=== PATIENT | female | born 1995 | race Caucasian/White ===

== ENCOUNTER 2017-10-17 21:10 | Emergency (ER) | payer SELFPAY ==
[~2017-10-17] VITALS: Ht 170.2 cm; Wt 56.7 kg
[2017-10-17] MEDS ORDERED: ALBUTEROL2.5 MG/3 M INH (21:21)
[2017-10-17 21:27] VITALS: BP 122/81
[2017-10-17] MEDS ORDERED: Albuterol ud Inhalation HHN ONE (21:30)
[2017-10-17] MEDS ORDERED: Ipratropium 0.02% Inh Soln 2.5ml UD HHN ONE (21:30)
--- NOTE | 2017-10-17 22:13 | Emergency Room Report ---
History of Present Illness General Chief Complaint: Asthma Source: Patient Present Illness HPI Is a 22-year-old female with history of asthma. With infrequent attacks. She presents with an asthma exacerbation. She was stripping paint in her bathroom and a few cause her to have her asthma attack. She said her inhaler wasn't helping. Denies any fever chills but denies any nausea vomiting. Last steroid use was over 2 months ago. Never been intubated. Was admitted when she was younger. Allergies: Coded Allergies: No Known Allergies (Unverified , 10/17/17) Patient History Past Medical History: see triage record, old chart reviewed, asthma Past Surgical History: none Pertinent Family History: none Social History: Denies: smoking Last Menstrual Period: 3 weeks ago Now: No Immunizations: other Reviewed Nursing Documentation: PMH: Agreed; PSxH: Agreed Nursing Documentation-PMH Hx Asthma: Yes Review of Systems Eye: Denies: eye pain, blurred vision ENT: Denies: ear pain, nose congestion, throat swelling Respiratory: Reports: cough, shortness of breath, wheezing Cardiovascular: Denies: chest pain, palpitations Gastrointestinal: Denies: abdominal pain, diarrhea, nausea, vomiting Musculoskeletal: Denies: back pain, joint pain Skin: Denies: rash Neurological: Denies: headache, numbness Endocrine: Denies: increased thirst, increased urine Hematologic/Lymphatic: Denies: easy bruising All Other Systems: negative except mentioned in HPI Physical Exam Vital Signs Date Time Temp Pulse Resp B/P (MAP) Pulse Ox O2 Delivery O2 Flow Rate FiO2 10/17/17 21:16 98.4 97 20 122/81 97 Room Air 98.4 10/17/17 21:35 21 vitals normal Sp02 EP Interpretation: reviewed, normal General Appearance: well appearing, no apparent distress, alert Head: normocephalic, atraumatic Eyes: bilateral eye PERRL, bilateral eye EOMI ENT: hearing grossly normal, normal pharynx Neck: full range of motion, supple, no meningismus Respiratory: chest non-tender, decreased breath sounds, accessory muscle use, wheezing Cardiovascular #1: regular rate, rhythm, no murmur Gastrointestinal: normal bowel sounds, non tender, no mass, no organomegaly, no bruit, non-distended Musculoskeletal: back normal, gait/station normal, normal range of motion Neurologic: alert, oriented x3 Psychiatric: mood/affect normal Skin: warm/dry Medical Decision Making Diagnostic Impression: Primary Impression: Asthma attack Qualified Codes: J45.21 - Mild intermittent asthma with (acute) exacerbation ER Course Patient presents with asthma exacerbation secondary to fumes. No evidence of respiratory failure, pneumonia, ACS, PE to name a few. She is back to baseline now. No wheezing. We'll discharge home. Last Vital Signs Date Time Temp Pulse Resp B/P (MAP) Pulse Ox O2 Delivery O2 Flow Rate FiO2 10/17/17 21:36 88 21 97 Room Air 21 10/17/17 21:27 98.4 122/81 98.4 Status: improved Disposition: HOME, SELF-CARE Condition: Stable Scripts Prednisone* (PREDNISONE*) 20 Mg Tablet 60 MG ORAL DAILY, #12 TAB Prov: MJ WALL M.D. 10/17/17 Patient Instructions: Asthma, Adult Additional Instructions: Follow-up with your doctor in 7 days. Return if worse. MJ WALL M.D. Oct 17, 2017 22:13
[2017-10-17] MEDS ORDERED: PREDNISONE20 MG ORAL (22:16)
[2017-10-17 22:23] VITALS: BP 137/74
== END 2017-10-17 22:24 | disposition home or self-care (01) ==
LOC: EMR 22:17
DX: J45.21 Mild intermittent asthma with (acute) exacerbation (principal)
CPT/HCPCS: 94640; 94664; 99284; J7512

== ENCOUNTER 2017-10-28 02:20 | Emergency (ER) | payer SELFPAY ==
[~2017-10-28] VITALS: Ht 170.2 cm; Wt 54.4 kg
[~2017-10-28 02:20] MED LIST: ALBUTEROL2.5 MG/3 M INH; PREDNISONE20 MG ORAL
[2017-10-28 02:39] VITALS: BP 120/82
[2017-10-28] MEDS ORDERED: Albuterol/Ipratropium 3ml neb HHN ONE ×2 (02:45→03:15)
[2017-10-28] MEDS ORDERED: Albuterol/Ipratropium 3ml neb ONE (03:08)
[2017-10-28 03:20] VITALS: BP 119/76
[2017-10-28] MEDS ORDERED: PREDNISONE20 MG ORAL (03:23)
[2017-10-28 03:30] VITALS: BP 119/76
--- NOTE | 2017-10-28 03:37 | Emergency Room Report ---
History of Present Illness General Chief Complaint: Asthma Source: Patient Present Illness HPI Patient's 22-year-old female presented after increased difficulty breathing. Patient prior history of asthma. She reportedly takes albuterol as well as montelukast. The patient was having increased discomfort with breathing. She denies any fever. She denied productive cough. She reports taking her medications. The patient onset of symptoms earlier in the day. Allergies: Coded Allergies: No Known Allergies (Unverified , 10/17/17) Patient History Past Medical History: see triage record Last Menstrual Period: oct Reviewed Nursing Documentation: PMH: Agreed; PSxH: Agreed Nursing Documentation-PMH Hx Asthma: Yes Review of Systems All Other Systems: negative except mentioned in HPI Physical Exam Vital Signs Date Time Temp Pulse Resp B/P (MAP) Pulse Ox O2 Delivery O2 Flow Rate FiO2 10/28/17 02:25 98.0 87 16 120/82 94 98.1 10/28/17 02:37 Room Air 97 General Appearance: well appearing, no apparent distress, alert, GCS 15 Head: normocephalic, atraumatic ENT: hearing grossly normal, normal voice Neck: full range of motion, supple Respiratory: lungs clear, normal breath sounds, no respiratory distress, speaking full sentences Cardiovascular #1: normal inspection, no edema Gastrointestinal: normal inspection, non tender, soft Musculoskeletal: normal inspection, back normal, no calf tenderness Neurologic: normal inspection, alert, oriented x3, responsive, electrical checkout mechanic III-XII nml as tested, normal gait Psychiatric: mood/affect normal Skin: no rash Medical Decision Making Diagnostic Impression: Primary Impression: Asthma attack ER Course Patient presented for difficulty breathing. Differential diagnosis included but was not limited to bronchitis, pneumonia, pulmonary embolism, pericarditis, asthma, foreign body. Patient has a benign exam and does not appear to require any further imaging or laboratory testing at this time. The patient is advised to follow up with primary care doctor in 1-2 days. Patient is advised to return if any worsening condition or if any changes in status that are concerning. This report is dictated with [employer] animal shelter clerk software which may occasionally lead to discrepancies related to use of this software. Last Vital Signs Date Time Temp Pulse Resp B/P (MAP) Pulse Ox O2 Delivery O2 Flow Rate FiO2 10/28/17 03:11 94 20 100 Room Air 21 10/28/17 02:39 98.1 120/82 98.1 Status: improved Disposition: HOME, SELF-CARE Condition: Stable Scripts Prednisone* (PREDNISONE*) 20 Mg Tablet 40 MG ORAL DAILY, #10 TAB Prov: Kwadwo Castañeda MD 10/28/17 Prednisone* (PREDNISONE*) 20 Mg Tablet 40 MG ORAL DAILY, #10 TAB Prov: Kwadwo Castañeda MD 10/28/17 Referrals: NOT CHOSEN [facility]/,REFERRING (PCP) Patient Instructions: Asthma, Adult Kwadwo Castañeda MD Oct 28, 2017 03:37
== END 2017-10-28 03:30 | disposition home or self-care (01) ==
LOC: EMR 02:42
DX: J45.901 Unspecified asthma with (acute) exacerbation (principal)
CPT/HCPCS: 94640; 99284; J7512; J7620

== ENCOUNTER 2017-11-27 06:04 | Emergency (ER) | payer SELFPAY ==
[~2017-11-27] VITALS: Ht 170.2 cm; Wt 56.7 kg
[2017-11-27 06:23] VITALS: BP 116/78
[2017-11-27] MEDS ORDERED: Sodium Chloride 500ML 500 ML IV ONE (06:26)
[2017-11-27] MEDS ORDERED: Dicyclomine HCl 10mg/5ml oral soln ORAL ONE (06:30)
[2017-11-27] MEDS ORDERED: Mylanta II UD 30ml ORAL ONE (06:30)
--- NOTE | 2017-11-27 06:30 | Emergency Room Report ---
History of Present Illness General Chief Complaint: Abdominal Pain Present Illness HPI Patient is a 22-year-old female who presented after increased epigastric pain. Patient presented having increased abdominal fullness with associated nausea. Patient had prior history of asthma and had been noted to be on prednisone approximate 3 weeks ago. She reports having some recent alcohol intake. She denies any fever. She had not been vomiting or having any bloody stools. The patient denies any worsening with food or exertion. She denies any other locations of pain. She denies any current shortness of breath. Allergies: Coded Allergies: No Known Allergies (Unverified , 10/17/17) Patient History Past Medical History: see triage record, asthma Last Menstrual Period: Oct Reviewed Nursing Documentation: PMH: Agreed; PSxH: Agreed Nursing Documentation-PMH Hx Asthma: Yes Review of Systems All Other Systems: negative except mentioned in HPI Physical Exam Vital Signs Date Time Temp Pulse Resp B/P (MAP) Pulse Ox O2 Delivery O2 Flow Rate FiO2 11/27/17 06:08 97.8 74 16 116/78 96 Room Air 97.9 Sp02 EP Interpretation: reviewed, normal General Appearance: normal inspection, well appearing, no apparent distress, alert, GCS 15, non-toxic Head: atraumatic ENT: normal ENT inspection, hearing grossly normal, normal voice Neck: normal inspection, full range of motion, supple, no bony tend Respiratory: normal inspection, lungs clear, normal breath sounds, no respiratory distress, no retraction, no wheezing Cardiovascular #1: regular rate, rhythm, no edema Gastrointestinal: normal inspection, normal bowel sounds, non tender, soft, no guarding, no hernia Genitourinary: no CVA tenderness Musculoskeletal: normal inspection, back normal, normal range of motion Neurologic: normal inspection, alert, oriented x3, responsive, double cutter III-XII nml as tested, speech normal Psychiatric: normal inspection, judgement/insight normal, mood/affect normal Skin: normal inspection, normal color, no rash Medical Decision Making Diagnostic Impression: Primary Impression: Nonspecific abdominal pain ER Course Patient presented for abdominal pain. Differential diagnoses included ischemic bowel, appendicitis, perforated viscus, abdominal aortic aneurysm, inferior myocardial infarction, viral gastroenteritis Because of complexity of patient's case laboratory testing and imaging studies were ordered.Laboratory testing was unremarkable. The patient was noted to have short duration of pain. Patient was advised to be rechecked in 24 hours. Patient was advised to return if she began having worsening pain persistent vomiting or other concerns and may need CT imaging if this occurs.The patient is advised to follow up with primary care doctor in 1-2 days. Patient is advised to return if any worsening condition or if any changes in status that are concerning. This report is dictated with [employer] medication aide software which may occasionally lead to discrepancies related to use of this software. Labs Test 11/27/17 06:38 White Blood Count 4.7 K/UL (4.8-10.8) Red Blood Count 5.14 M/UL (4.20-5.40) Hemoglobin 13.7 G/DL (12.0-16.0) Hematocrit 41.2 % (37.0-47.0) Mean Corpuscular Volume 80 FL (80-99) Mean Corpuscular Hemoglobin 26.7 PG (27.0-31.0) Mean Corpuscular Hemoglobin Concent 33.3 G/DL (32.0-36.0) Red Cell Distribution Width 13.6 % (11.6-14.8) Platelet Count 221 K/UL (150-450) Mean Platelet Volume 8.4 FL (6.5-10.1) Neutrophils (%) (Auto) 48.6 % (45.0-75.0) Lymphocytes (%) (Auto) 37.2 % (20.0-45.0) Monocytes (%) (Auto) 10.1 % (1.0-10.0) Eosinophils (%) (Auto) 2.9 % (0.0-3.0) Basophils (%) (Auto) 1.2 % (0.0-2.0) Prothrombin Time 11.2 SEC (9.30-11.50) Prothromb Time International Ratio 1.1 (0.9-1.1) Activated Partial Thromboplast Time 24 SEC (23-33) Urine Color Yellow Urine Appearance Slightly cloudy Urine pH 9 (4.5-8.0) Urine Specific [place] 1.015 (1.005-1.035) Urine Protein 1+ (NEGATIVE) Urine Glucose (UA) Negative (NEGATIVE) Urine Ketones Negative (NEGATIVE) Urine Blood Negative (NEGATIVE) Urine Nitrite Negative (NEGATIVE) Urine Bilirubin Negative (NEGATIVE) Urine Urobilinogen Normal MG/DL (0.0-1.0) Urine Leukocyte Esterase Negative (NEGATIVE) Urine RBC 0-2 /HPF (0 - 2) Urine WBC 0 /HPF (0 - 2) Urine Squamous Epithelial Cells Occasional /LPF Urine Amorphous Sediment Moderate /LPF (NONE) Urine Bacteria Occasional /HPF (NONE) Urine HCG, Qualitative Negative (NEGATIVE) Sodium Level 143 MMOL/L (136-145) Potassium Level 3.5 MMOL/L (3.5-5.1) Chloride Level 106 MMOL/L (98-107) Carbon Dioxide Level 30 MMOL/L (21-32) Anion Gap 7 mmol/L (5-15) Blood Urea Nitrogen 5 mg/dL (7-18) Creatinine 0.7 MG/DL (0.55-1.30) Estimat Glomerular Filtration Rate > 60 mL/min (>60) Glucose Level 107 MG/DL (74-106) Calcium Level 9.6 MG/DL (8.5-10.1) Total Bilirubin 0.4 MG/DL (0.2-1.0) Aspartate Amino Transf (AST/SGOT) 20 U/L (15-37) Alanine Aminotransferase (ALT/SGPT) 32 U/L (12-78) Alkaline Phosphatase 73 U/L (46-116) Troponin I 0.000 ng/mL (0.000-0.056) Total Protein 8.3 G/DL (6.4-8.2) Albumin 4.5 G/DL (3.4-5.0) Globulin 3.8 g/dL Albumin/Globulin Ratio 1.2 (1.0-2.7) Lipase 164 U/L (73-393) Last Vital Signs Date Time Temp Pulse Resp B/P (MAP) Pulse Ox O2 Delivery O2 Flow Rate FiO2 11/27/17 06:08 97.8 74 16 116/78 96 Room Air 97.9 Status: improved Disposition: HOME, SELF-CARE Condition: Stable Scripts Dicyclomine Hcl* (DICYCLOMINE HCL*) 10 Mg Capsule 10 MG PO QID, #20 CAP Prov: Kwadwo Castañeda MD 11/27/17 Kwadwo Castañeda MD Nov 27, 2017 06:30
[2017-11-27 07:02] LABS: BASOPHILS % (AUTO) 1.2 % (0.0-2.0); EOSINOPHILS % (AUTO) 2.9 % (0.0-3.0); HEMATOCRIT 41.2 % (37.0-47.0); HEMOGLOBIN 13.7 G/DL (12.0-16.0); LYMPHOCYTES % (AUTO) 37.2 % (20.0-45.0); MEAN CORPUSCULAR VOLUME 80 FL (80-99); MONOCYTES % (AUTO) 10.1 % (1.0-10.0); NEUTROPHILS % (AUTO) 48.6 % (45.0-75.0); PLATELET COUNT 221 K/UL (150-450); RED BLOOD COUNT 5.14 M/UL (4.20-5.40); RED CELL DISTRIBUTION WIDTH 13.6 % (11.6-14.8); WHITE BLOOD COUNT 4.7 K/UL (4.8-10.8)
[2017-11-27 07:07] LABS: APPEARANCE,URINE SLIGHTLY CLOUDY; BILIRUBIN, URINE NEGATIVE (NEGATIVE); GLUCOSE, URINE (UA) NEGATIVE (NEGATIVE); KETONES,URINE NEGATIVE (NEGATIVE); LEUKOCYTE ESTERASE ,URINE NEGATIVE (NEGATIVE); NITRITE,URINE NEGATIVE (NEGATIVE); PH,URINE 9 (4.5-8.0); PROTEIN,URINE 1+ (NEGATIVE); UROBILINOGEN,URINE NORMAL MG/DL (0.0-1.0)
[2017-11-27 07:08] LABS: INR 1.1 (0.9-1.1)
[2017-11-27 07:18] LABS: ANION GAP 7 mmol/L (5-15); BLOOD UREA NITROGEN 5 mg/dL (7-18); CALCIUM 9.6 MG/DL (8.5-10.1); CARBON DIOXIDE 30 MMOL/L (21-32); CHLORIDE 106 MMOL/L (98-107); CREATININE 0.7 MG/DL (0.55-1.30); POTASSIUM 3.5 MMOL/L (3.5-5.1); SODIUM 143 MMOL/L (136-145)
[2017-11-27 07:21] LABS: COLOR,URINE YELLOW
[2017-11-27 07:22] LABS: ALANINE AMINOTRANSFERASE 32 U/L (12-78); ALBUMIN 4.5 G/DL (3.4-5.0); ALBUMIN/GLOBULIN RATIO 1.2 (1.0-2.7); ALKALINE PHOSPHATASE 73 U/L (46-116); ASPARTATE AMINO TRANSFERASE 20 U/L (15-37); BILIRUBIN,TOTAL 0.4 MG/DL (0.2-1.0)
[2017-11-27] MEDS ORDERED: DICYCLOMINE HCL10 MG PO (07:40)
[2017-11-27 07:50] VITALS: BP 112/74
== END 2017-11-27 07:50 | disposition home or self-care (01) ==
LOC: EMR 06:50
DX: R10.13 Epigastric pain (principal); R11.0 Nausea; J45.909 Unspecified asthma, uncomplicated; Z72.89 Other problems related to lifestyle
CPT/HCPCS: 36415; 80053; 81003; 81025; 83690; 84484; 85025; 85610; 85730; 96374; 99284; J2405; J7040

== ENCOUNTER 2018-07-08 01:39 | Emergency (ER) | payer SELFPAY ==
[~2018-07-08] VITALS: Ht 152.4 cm; Wt 54.4 kg
[~2018-07-08 01:39] MED LIST changes: +DICYCLOMINE HCL10 MG PO
[2018-07-08 02:11] VITALS: BP 131/84
[2018-07-08] MEDS ORDERED: Ipratropium 0.02% Inh Soln 2.5ml UD HHN ONE (02:15)
[2018-07-08] MEDS ORDERED: Albuterol ud Inhalation HHN ONE (02:15)
--- NOTE | 2018-07-08 02:26 | Emergency Room Report ---
History of Present Illness General Chief Complaint: Dyspnea/Respdistress Source: Patient Present Illness HPI Patient is 2 days of dyspnea. She ran out of her inhaler and also her nebulized albuterol. This is not her worst attack. She denies any fevers. There is no productive cough. She hasn't any chest pain or calf pain. There is no edema. She feels she needs a breathing treatment and prednisone. No chills, palpitations, nausea, vomiting, diarrhea, dysuria, abdominal pain, depression, visual changes, headache. Allergies: Coded Allergies: No Known Allergies (Unverified , 10/17/17) Patient History Past Medical History: see triage record Social History: Reports: drug use - thc; Denies: smoking Social History Narrative with friend Last Menstrual Period: currently on period Now: No : 0 Para: 0 Reviewed Nursing Documentation: PMH: Agreed; PSxH: Agreed Nursing Documentation-PM Past Medical History: No History, Except For Hx Asthma: Yes Review of Systems All Other Systems: negative except mentioned in HPI Physical Exam Vital Signs Date Time Temp Pulse Resp B/P (MAP) Pulse Ox O2 Delivery O2 Flow Rate FiO2 07/08/18 01:42 98.4 99 24 131/84 89 Room Air 07/08/18 02:21 21 Sp02 EP Interpretation: reviewed, normal General Appearance: well appearing, no apparent distress Head: normocephalic, atraumatic Eyes: bilateral eye normal inspection, bilateral eye PERRL ENT: hearing grossly normal, normal voice Neck: full range of motion, supple Respiratory: no respiratory distress, speaking full sentences, wheezing - Minimal, expiration Cardiovascular #1: regular rate, rhythm Cardiovascular #2: 2+ radial (R) Gastrointestinal: normal inspection, scaphoid Genitourinary: no CVA tenderness Musculoskeletal: back normal, digits/nails normal, gait/station normal, normal range of motion, no calf tenderness Neurologic: alert, oriented x3, normal gait, grossly normal Psychiatric: mood/affect normal Skin: other - Acne Medical Decision Making Diagnostic Impression: Primary Impression: Asthma attack Qualified Codes: J45.21 - Mild intermittent asthma with (acute) exacerbation ER Course Patient presents with wheezing without fever or productive cough. Differential includes a viral upper respiratory infection, asthma exacerbation amongst others. She will be provided with a breathing treatment here and also started on prednisone. Chest x-ray is not indicated at this time. Patient is improved with breathing treatments. Treatment plan as discussed with the patient. She is provided with prescriptions. Patient stable for outpatient observation and treatment Last Vital Signs Date Time Temp Pulse Resp B/P (MAP) Pulse Ox O2 Delivery O2 Flow Rate FiO2 07/08/18 03:07 98.4 88 18 131/84 99 Room Air 21 Status: improved Disposition: HOME, SELF-CARE Condition: Improved Scripts Beclomethasone Dipropionate 40MCG Oral Inh (QVAR 40*) 7.3 Gm Aer.w.adap 2 PUFFS INH TWICE A DAY, #1 GM 0 Refills Prov: Mike Munson MD 07/08/18 Albuterol Sulfate* (ALBUTEROL SULFATE HHN*) 2.5 Mg/3 Ml Vial.neb 2.5 MG HHN Q4H PRN for Shortness of Breath, #25 VIAL 1 Refill Prov: Mike Munson MD 07/08/18 Albuterol Sulfate* (ALBUTEROL SULFATE MDI*) 8.5 Gm Hfa.aer.ad 2 PUFF INH Q6H, #1 EA 1 Refill Prov: Mike Munson MD 07/08/18 Referrals: NOT CHOSEN [facility]/,REFERRING (PCP) Mike Munson MD Jul 08, 2018 02:26
[2018-07-08] MEDS ORDERED: ALBUTEROL2.5 MG/3 M HHN (03:00)
[2018-07-08] MEDS ORDERED: ALBUTEROL SULF8.5 GM INH (03:00)
[2018-07-08] MEDS ORDERED: QVAR7.3 GM INH (03:00)
[2018-07-08 03:07] VITALS: BP 131/84
== END 2018-07-08 03:08 | disposition home or self-care (01) ==
LOC: EMR 02:12
DX: J45.21 Mild intermittent asthma with (acute) exacerbation (principal)
CPT/HCPCS: 94640; 99284; J7512

== ENCOUNTER 2018-08-30 02:00 | Emergency (ER) | payer SELFPAY ==
[~2018-08-30] VITALS: Ht 172.7 cm; Wt 56.7 kg
[~2018-08-30 02:00] MED LIST changes: +ALBUTEROL SULF8.5 GM INH; +ALBUTEROL2.5 MG/3 M HHN; +QVAR7.3 GM INH
[2018-08-30 02:11] VITALS: BP 119/71
[2018-08-30] MEDS ORDERED: Albuterol ud Inhalation HHN ONE (02:15)
[2018-08-30] MEDS ORDERED: Albuterol/Ipratropium 3ml neb HHN ONE (02:15)
[2018-08-30] MEDS ORDERED: PREDNISONE20 MG ORAL (02:24)
[2018-08-30] MEDS ORDERED: ALBUTEROL SULF8.5 GM INH (02:40)
--- NOTE | 2018-08-30 20:53 | Emergency Room Report ---
History of Present Illness General Chief Complaint: Asthma Source: Patient Present Illness HPI Patient is 23-year-old female presented after increased cough and difficulty with respirations. Patient had been taking albuterol for asthma. She was noted to have increased dyspnea. She had not been having any fever. She reports having increased nonproductive cough. She had prior history of asthma use and is currently taking albuterol inhaler only. Patient denies any leg pain or swelling. She denies being . Allergies: Coded Allergies: No Known Allergies (Unverified , 10/17/17) Patient History Past Medical History: see triage record Last Menstrual Period: 07/30/18 Now: No Reviewed Nursing Documentation: PMH: Agreed; PSxH: Agreed Nursing Documentation-PMH Hx Asthma: Yes Review of Systems All Other Systems: negative except mentioned in HPI Physical Exam Vital Signs Date Time Temp Pulse Resp B/P (MAP) Pulse Ox O2 Delivery O2 Flow Rate FiO2 08/30/18 02:05 97.2 100 18 119/71 (87) 98 Room Air 08/30/18 02:24 21 Sp02 EP Interpretation: reviewed, normal General Appearance: normal inspection, well appearing, no apparent distress, alert, GCS 15 Head: atraumatic ENT: normal ENT inspection, hearing grossly normal, normal voice Neck: normal inspection, full range of motion, supple, no bony tend Respiratory: normal inspection, normal breath sounds, no respiratory distress, no retraction, wheezing Cardiovascular #1: regular rate, rhythm, no edema Gastrointestinal: normal inspection, normal bowel sounds, non tender, soft, no guarding, no hernia Genitourinary: no CVA tenderness Musculoskeletal: normal inspection, back normal, normal range of motion Neurologic: normal inspection, alert, responsive, speech normal Psychiatric: normal inspection, judgement/insight normal, mood/affect normal Skin: normal inspection, normal color, no rash Medical Decision Making Diagnostic Impression: Primary Impression: Asthma ER Course . Patient presented for cough and difficulty with breathing. Differential diagnosis include was not limited to asthma exacerbation, pneumonia, pulmonary embolism, viral infection among others. Patient has a benign exam and does not appear to require any further imaging or laboratory testing at this time patient was noted to be using an inhaler which showed 0 metered-dose increments. The patient was a given breathing treatment with marked improvement in her respiratory status. Patient appears to be stable for outpatient management she was given prescription for oral steroids as well as inhalers. Last Vital Signs Date Time Temp Pulse Resp B/P (MAP) Pulse Ox O2 Delivery O2 Flow Rate FiO2 08/30/18 03:08 97.2 92 18 102/68 100 Room Air 08/30/18 02:45 21 Status: improved Disposition: HOME, SELF-CARE Condition: Stable Scripts Albuterol Sulfate* (ALBUTEROL SULFATE MDI*) 8.5 Gm Hfa.aer.ad 2 PUFF INH Q6H, #1 EA 1 Refill Prov: Kwadwo Castañeda MD 08/30/18 Prednisone* (PREDNISONE*) 20 Mg Tablet 40 MG ORAL DAILY, #10 TAB Prov: Kwadwo Castañeda MD 08/30/18 Prednisone* (PREDNISONE*) 20 Mg Tablet 40 MG ORAL DAILY, #10 TAB Prov: Kwadwo Castañeda MD 08/30/18 Referrals: NOT CHOSEN [facility]/,REFERRING (PCP) Patient Instructions: Asthma, Adult Kwadwo Castañeda MD Aug 30, 2018 20:53
== END 2018-08-30 03:10 | disposition home or self-care (01) ==
LOC: EMR 02:30
DX: J45.909 Unspecified asthma, uncomplicated (principal)
CPT/HCPCS: 94640; 94664; 99284; J7512; J7620